=== PATIENT | male | born 1950 ===

== ENCOUNTER → 2016-10-08 | Outpatient (CLI) | payer OTHER ==
[2016-10-08 13:36] LABS: ALT/SGPT 22 U/L (12-78); BLOOD UREA NITROGEN 20 mg/dl (7-18); BUN/CREATININE RATIO 12.6 (10-20); CALCIUM 9.4 mg/dl (8.5-10.1); CARBON DIOXIDE 30 mmol/L (21-32); CHLORIDE 107 mmol/L (98-107); GLUCOSE 106 mg/dl (70-99); POTASSIUM 5.1 mmol/L (3.5-5.1); SODIUM 141 mmol/L (136-145)
== END | disposition home or self-care (01) ==
LOC: C.LABMFLN 09:11
PROVIDERS: ATTEND Family Medicine
DX: E78.5 Hyperlipidemia, unspecified (principal); I10 Essential (primary) hypertension; R53.83 Other fatigue

== ENCOUNTER → 2017-04-22 | Outpatient (CLI) | payer OTHER ==
[2017-04-22 13:04] LABS: ALT/SGPT 30 U/L (12-78); BLOOD UREA NITROGEN 23 mg/dl (7-18); CALCIUM 9.4 mg/dl (8.5-10.1); CARBON DIOXIDE 28 mmol/L (21-32); CHOLESTEROL 171 mg/dl (0-200); CREATININE 1.53 mg/dl (0.60-1.40); GLUCOSE 90 mg/dl (70-99); POTASSIUM 4.6 mmol/L (3.5-5.1); SODIUM 135 mmol/L (136-145)
[2017-04-22 13:07] LABS: LDL CHOLESTEROL (DIRECT) 107 mg/dl
== END | disposition home or self-care (01) ==
LOC: C.LABMFLN 09:45
PROVIDERS: ATTEND Family Medicine
DX: N18.3 Chronic kidney disease, stage 3 (moderate) (principal); E78.5 Hyperlipidemia, unspecified; M85.80 Other specified disorders of bone density and structure, unspecified site

== ENCOUNTER → 2017-05-06 | Outpatient (CLI) | payer OTHER | END | disposition home or self-care (01) | LOC: C.LABMFLN 09:30 | PROVIDERS: ATTEND Physician Assistant | DX: M10.9 Gout, unspecified (principal) ==

== ENCOUNTER → 2017-05-26 | Outpatient (CLI) | payer OTHER | END | disposition home or self-care (01) | LOC: C.LABMFLN 08:39 | PROVIDERS: ATTEND Family Medicine | DX: M10.9 Gout, unspecified (principal) ==